=== PATIENT | male | born 1985 ===

== ENCOUNTER 2021-07-28 14:47 | Emergency (ER) | payer OTHER ==
[~2021-07-28] VITALS: Ht 167.6 cm; Wt 80.1 kg
[2021-07-28 14:55] VITALS: BP 112/60
--- NOTE | 2021-07-28 16:49 | NUR ---
REMOTE RECRUITER: PT WANTED TO LEAVE, REFUSED TO SIGN AMA
== END 2021-07-28 16:51 | disposition left against medical advice (07) ==
LOC: ED 16:45
DX: U07.1 COVID-19 (principal); R06.02 Shortness of breath; R07.89 Other chest pain
CPT/HCPCS: 71045; 93005; 99285; U0003; U0005